=== PATIENT | female | born 1975 | race African-American/Black ===

== ENCOUNTER 2016-10-12 17:23 | Emergency (ER) | payer BC ==
[~2016-10-12] VITALS: Ht 157.5 cm; Wt 85.7 kg
[~2016-10-12 17:23] MED LIST: GLUCOPHAGE XR500 MG PO; LISINOPRIL-HCT1 EACH PO; TRICOR145 MG PO; VITAMIN D 5050000 I1 PO; ZOCOR20 MG PO
[2016-10-12 18:05] LABS: ABSOLUTE NEUTROPHILS 4.8 thou/uL (1.4-8.2); EOSINOPHILS 0.8 % (0.0-3.0); HEMATOCRIT 38.3 % (37.0-47.0); LYMPHOCYTES 41.2 % (24.0-44.0); MCH 30.5 pg (26.0-34.0); MCV 89.8 fL (80.0-100.0); MONOCYTES 8.1 % (1.0-8.0); PLATELET COUNT 347 thou/uL (150-400); POLYS 48.9 % (36.0-66.0); RBC 4.27 mil/uL (4.20-5.00); RDW 15.3 % (10.5-14.5); WBC 9.9 thou/uL (4.0-11.0)
[2016-10-12 18:09] LABS: MANUAL DIFF NO
[2016-10-12 18:17] LABS: CALCIUM 9.2 mg/dL (8.5-10.1); CREATININE 0.9 mg/dL (0.6-1.3); POTASSIUM 4.1 mmol/L (3.5-5.1)
[2016-10-12] MEDS ORDERED: ZESTORETIC 10-1 EACH PO (18:30)
[2016-10-12 18:58] VITALS: BP 130/93
== END 2016-10-12 18:58 | disposition home or self-care (01) ==
LOC: ER 17:23
PROVIDERS: Physician Assistant
DX: I10 Essential (primary) hypertension (principal); Z76.0 Encounter for issue of repeat prescription; E11.9 Type 2 diabetes mellitus without complications

== ENCOUNTER 2017-02-09 09:01 | Emergency (ER) | payer BC ==
[~2017-02-09] VITALS: Ht 160 cm; Wt 89.8 kg
[~2017-02-09 09:01] MED LIST changes: +ZESTORETIC 10-1 EACH PO
[2017-02-09] MEDS ORDERED: NORCO 5-325 TA1 EACH PO (11:46)
[2017-02-09 12:15] VITALS: BP 118/74
== END 2017-02-09 12:30 | disposition home or self-care (01) ==
LOC: ER 09:01
DX: S80.02XA Contusion of left knee, initial encounter (principal); E11.9 Type 2 diabetes mellitus without complications; I10 Essential (primary) hypertension; E78.00 Pure hypercholesterolemia, unspecified; F17.210 Nicotine dependence, cigarettes, uncomplicated; V43.52XA Car driver injured in collision with other type car in traffic accident, initial encounter; Y93.I9 Activity, other involving external motion; Y92.415 Exit ramp or entrance ramp of street or highway as the place of occurrence of the external cause; Y99.9 Unspecified external cause status

== ENCOUNTER 2017-09-27 20:14 | Emergency (ER) | payer BC ==
[~2017-09-27] VITALS: Ht 160 cm; Wt 81.7 kg
[~2017-09-27 20:14] MED LIST changes: +NORCO 5-325 TA1 EACH PO
[2017-09-27 21:33] LABS: HEMOGLOBIN 13.4 gm/dL (12.0-15.0); MCH 30.3 pg (26.0-34.0); MCHC 33.4 g/dL (28.0-37.0); MCV 90.6 fL (80.0-100.0); RBC 4.41 mil/uL (4.20-5.00); RDW 15.5 % (10.5-14.5); WBC 9.7 thou/uL (4.0-11.0)
[2017-09-27 21:40] LABS: CALCIUM 9.4 mg/dL (8.5-10.1); POTASSIUM 3.4 mmol/L (3.5-5.1)
[2017-09-27 21:50] LABS: URINE BILIRUBIN NEGATIVE (Negative); URINE BLOOD NEGATIVE (Negative); URINE CLARITY CLEAR; URINE COLOR YELLOW; URINE GLUCOSE-RANDOM* NEGATIVE (Negative); URINE KETONES NEGATIVE (Negative); URINE LEUKOCYTES NEGATIVE (Negative); URINE NITRITE NEGATIVE (Negative); URINE PROTEIN (DIPSTICK) NEGATIVE (Negative); URINE SPECIFIC GRAVITY <= 1.005 (1.005-1.035); URINE UROBILINOGEN 0.2 E.U./dl (0.2-1.0)
[2017-09-27] MEDS ORDERED: OSELB75 PO (22:39)
[2017-09-27] MEDS ORDERED: TRAMADOL 50 MG50 MG PO (22:39)
[2018-03-21] MEDS ORDERED: LAMICTAL100 MG PO (22:27)
[2018-03-21] MEDS ORDERED: VITAMIN D1000 UNI1 PO (22:28)
[2018-03-22] MEDS ORDERED: PRILOSEC 20 MG20 MG PO (00:49)
[2018-03-22] MEDS ORDERED: TRAMADOL 50 MG50 MG PO (00:49)
== END 2017-09-27 23:39 | disposition home or self-care (01) ==
LOC: ER 20:14
PROVIDERS: Physician Assistant
DX: J11.08 Influenza due to unidentified influenza virus with specified pneumonia (principal); E11.9 Type 2 diabetes mellitus without complications; I10 Essential (primary) hypertension; E78.00 Pure hypercholesterolemia, unspecified; F17.210 Nicotine dependence, cigarettes, uncomplicated

== ENCOUNTER → 2020-01-11 | Outpatient (CLI) | payer BC ==
[~2020-01-11] MED LIST changes: +LAMICTAL100 MG PO; +OSELB75 PO; +PRILOSEC 20 MG20 MG PO; +TRAMADOL 50 MG50 MG PO; +VITAMIN D1000 UNI1 PO
== END ==
LOC: SJCVCIMAG 12-20 14:03
DX: I10 Essential (primary) hypertension (principal); E11.9 Type 2 diabetes mellitus without complications; E78.5 Hyperlipidemia, unspecified